=== PATIENT | male | born 1955 | race Caucasian/White ===

== ENCOUNTER → 2017-02-20 | Outpatient (CLI) | payer BC ==
--- NOTE | 2017-02-21 02:35 | REP ---
Clinical: Asbestos exposure . Comparison: None . Technique: PA and lateral. Findings: The mediastinum and cardiac silhouette are normal. The lung [place] are clear and without acute consolidation, effusion, or pneumothorax. The skeletal structures are intact and normal. Impression: 1. No acute cardiopulmonary process. Signed by Liam Jones MD 02/21/2017 02:26 A
--- NOTE | 2017-02-21 06:36 | REP ---
Clinical: Testicular mass. Technique: Real time anderson scale and color Doppler evaluation of the scrotum and testicles using linear and curved array transducer. Findings: The bilateral testicles and epididymi are relatively normal in contour, size, echogenicity, and vascularity without mass lesion, infectious/inflammatory process, or torsion. Incidental note is made of a 3.3 mm left epididymal head cyst. Small to moderate hydroceles with floating debris are likely chronic. Along with a 3 mm right scrotal britney. No varicoceles noted. Right testicle measures 4.8 x 3.6 x 2.5 cm. Left testicle measures 4.7 x 2.9 x 2.8 cm. Impression: 1. Small to moderate chronic appearing bilateral hydroceles and 3 mm scrotal britney represent chronic relatively benign findings. 2. Normal testicles. No mass lesion. Signed by Liam Jones MD 02/21/2017 06:28 A
== END ==
LOC: M RAD 14:25
PROVIDERS: ATTEND Family Medicine
DX: Z77.090 Contact with and (suspected) exposure to asbestos (principal)

== ENCOUNTER → 2020-08-20 | Outpatient (CLI) | payer BC | LOC: M LABSMTC 09:44 | PROVIDERS: ATTEND Orthopaedic Surgery | DX: Z01.812 Encounter for preprocedural laboratory examination (principal); Z20.828 Contact with and (suspected) exposure to other viral communicable diseases ==

== ENCOUNTER → 2021-08-02 | Outpatient (CLI) | payer MEDICARE ==
--- NOTE | 2021-08-02 12:47 | REP ---
INDICATION: SWELLING OF RIGHT KNEE JOINT COMPARISON: None. TECHNIQUE: AP, lateral, bilateral oblique and sunrise views. FINDINGS: The osseous structures and joint spaces are intact and age-appropriate. There is no evidence for acute fracture or dislocation. Lateral and sunrise views demonstrate anterior/prepatellar soft tissue swelling of uncertain etiology. No definite underlying effusion identified. IMPRESSION: Anterior/prepatellar soft tissue swelling. Osseous structures and joint spaces appear normal. <Electronically signed by Liam Jones > 08/02/21 [id number]
== END ==
LOC: M ADAMS 12:18
PROVIDERS: ATTEND Family Medicine
DX: M25.461 Effusion, right knee (principal); I73.00 Raynaud's syndrome without gangrene; E11.9 Type 2 diabetes mellitus without complications; E78.5 Hyperlipidemia, unspecified

== ENCOUNTER → 2021-08-02 | Outpatient (REF) | payer MEDICARE ==
[2021-08-02 16:19] LABS: HEMATOCRIT 41.4 % (42.0-52.0); HEMOGLOBIN 14.1 g/dl (13.5-17.5); MEAN CORPUSCULAR HEMOGLOBIN 31.6 pg (27.0-33.0); MEAN CORPUSCULAR HGB CONC 34.1 g/dl (32.0-36.5); MEAN CORPUSCULAR VOLUME 92.8 fl (80.0-96.0); PLATELET COUNT, AUTOMATED 191 10^3/uL (150-450); RED BLOOD COUNT 4.46 10^6/uL (4.30-6.10); WHITE BLOOD COUNT 5.4 10^3/uL (4.0-10.0)
[2021-08-02 17:40] LABS: ALT/SGPT 46 U/L (12-78); BILIRUBIN,TOTAL 0.9 MG/DL (0.2-1.0); BLOOD UREA NITROGEN 16 MG/DL (7-18); CALCIUM LEVEL 9.1 MG/DL (8.8-10.2); CARBON DIOXIDE LEVEL 30 MEQ/L (21-32); CHLORIDE LEVEL 106 MEQ/L (98-107); CHOLESTEROL LEVEL 150 MG/DL (<200); CHOLESTEROL RISK RATIO 2.459 (<5); CREATININE FOR GFR 0.82 MG/DL (0.70-1.30); GLOMERULAR FILTRATION RATE > 60.0 (>49); GLUCOSE, FASTING 161 MG/DL (70-100); HDL CHOLESTEROL 61 MG/DL (>40); LDL CHOLESTEROL 66 MG/DL (<100); NON-HDL-C 89 MG/DL; POTASSIUM SERUM 4.6 MEQ/L (3.5-5.1); RHEUMATOID FACTOR QUANT < 10.0 IU/ML (<15.0); SODIUM LEVEL 139 MEQ/L (136-145); TRIGLYCERIDES LEVEL 113 MG/DL (<150)
[2021-08-02 19:45] LABS: HEMOGLOBIN A1c 7.3 %
[2021-08-04 21:14] LABS: ANA (HEP2) Negative (.); Lyme Disease IgG/IgM Antibodie <0.91 ISR (0.00-0.90); Lyme Disease IgM Ab Quantitati <0.80 index (0.00-0.79)
== END ==
LOC: M SFHCADAM 12:09
PROVIDERS: ATTEND Family Medicine
DX: I73.00 Raynaud's syndrome without gangrene (principal); E11.9 Type 2 diabetes mellitus without complications; E78.5 Hyperlipidemia, unspecified; M25.461 Effusion, right knee

== ENCOUNTER → 2023-02-14 | Outpatient (REF) | payer MEDICARE | LOC: M SFHCADAM 16:10 | PROVIDERS: ATTEND Family Medicine | DX: E11.9 Type 2 diabetes mellitus without complications (principal) ==

== ENCOUNTER → 2023-11-28 | Outpatient (CLI) | payer MEDICARE | LOC: M SOG 07:51 | PROVIDERS: ATTEND Physician Assistant | DX: M79.641 Pain in right hand (principal); M79.642 Pain in left hand ==

== ENCOUNTER 2023-12-06 08:20 | Day surgery (SDC) | payer MEDICARE ==
[~2023-12-06] VITALS: Ht 175.3 cm; Wt 76.9 kg
[~2023-12-06 08:20] MED LIST: ATOR40TA75 PO; INSU100I48 SQ; LIDOCAINE W/EPINEPHRINE 1% 20ML VIAL XX ONE; METF-838 PO; NIFE-3 PO; SILD100T PO; SODIUM BICARBONATE 8.4% INJ 50MEQ 50ML VIAL XX ONE
[2023-12-06] MEDS: BACITRACIN OINTMENT 30GM TUBE As Ordered ONE (09:51)
[2023-12-06 10:02] VITALS: BP 129/72; TEMP 97.2; O2SAT 98
== END 2023-12-06 10:16 | disposition home or self-care (01) ==
LOC: M SDC 08:20
PROVIDERS: ATTEND Orthopaedic Surgery Hand Surgery
DX: M65.332 Trigger finger, left middle finger (principal); E78.5 Hyperlipidemia, unspecified; E11.9 Type 2 diabetes mellitus without complications; Z85.46 Personal history of malignant neoplasm of prostate; I73.00 Raynaud's syndrome without gangrene; Z88.0 Allergy status to penicillin; F17.200 Nicotine dependence, unspecified, uncomplicated; Z79.84 Long term (current) use of oral hypoglycemic drugs; Z79.899 Other long term (current) drug therapy

== ENCOUNTER → 2025-09-14 | Outpatient (CLI) | payer MEDICARE ==
[~2025-09-14] MED LIST changes: -LIDOCAINE W/EPINEPHRINE 1% 20ML VIAL XX ONE; -SODIUM BICARBONATE 8.4% INJ 50MEQ 50ML VIAL XX ONE
== END ==
LOC: M SOG 15:20
PROVIDERS: ATTEND Physician Assistant
DX: M79.645 Pain in left finger(s) (principal)

== ENCOUNTER → 2025-10-26 | Outpatient (CLI) | payer MEDICARE | LOC: M SOG 11:42 | PROVIDERS: ATTEND Physician Assistant | DX: M79.641 Pain in right hand (principal) ==